=== PATIENT | male | born 1985 | race Caucasian/White ===

== ENCOUNTER 2023-05-26 13:27 | Emergency (ER) | payer BC, SELFPAY ==
[2023-05-26 13:51] VITALS: BP 140/72; PULSE 87; RESP 18; TEMP 36.2; O2SAT 97; BMI 30.3
--- NOTE | 2023-05-26 13:51 | ED_ITS ---
HPI - General Adult General Chief complaint: Dizziness Stated complaint: Dizzy Spells Falling Time Seen by Provider: 05/26/23 21:44 Source: patient Mode of arrival: ambulatory Limitations: no limitations History of Present Illness HPI narrative: 38 yo male no sig PMH no travel no procedures here with c/o intermittent dizzines but no CP/SOB no hx of VTE or SCD in family might have started when he had COVID back in April he feels weak and his legs want to give out at times. He has fallen to his knees before but no LOC. Usually starts with him standing. MD complaint: near syncope Onset (ago): month(s) Radiation: non-radiation Severity: moderate Quality: other (weakness) Relieving factors: rest Exacerbating factors: movement Associated symptoms: weakness Treatments prior to arrival: none Related Data Allergies Allergy/AdvReac Type Severity Reaction Status Date / Time No Known Allergies Allergy Verified 05/26/23 13:51 Review of Systems 2 Review of Systems: Constitutional : No Fever, No Chills, No Fatigue ENT/Mouth : No sore throat, No Rhinorrhea Eyes: No Eye Pain, No Swelling, No Redness Cardiovascular : No Chest Pain, No SOB, No Dyspnea on Exertion Respiratory : No Cough, No Sputum Gastrointestinal : No Nausea, No Vomiting, No Diarrhea, No abdominal Pain Genitourinary : No Dysuria, No Urinary Frequency, No Hematuria, Musculoskeletal : No joint pain, No Myalgias, No Joint Swelling Skin : No Skin Lesions, No rash Neuro : No Weakness, No Numbness, pos Dizziness, no Headache Psych : No Anxiety/Panic, No Depression Heme/Lymph: No Bruising, No Bleeding,No Lymphadenopathy Endocrine : No Polyuria, No Polydipsia All other systems reviewed and are negative [facility] Past Medical History Attestation statement: The following information was validated with the patient. Source: old records reviewed Medical History No pertinent past medical history Social History Social History (Updated 05/26/23 @ 22:29 by Kaycee Polanco DO) Patient Tobacco Use Status: Never used Tobacco Physical Exam ED Vital Signs: Vital Signs - 24 hr 05/26/23 13:51 05/26/23 20:22 05/26/23 21:37 Temperature 97.2 F 98 F 97.9 F Pulse Rate 87 70 70 Respiratory Rate 18 18 18 Blood Pressure 140/72 H 125/61 137/82 Pulse Oximetry 97 97 98 Oxygen Delivery Method Room Air Room Air Room Air 05/26/23 22:16 05/26/23 22:17 05/26/23 22:18 Temperature Pulse Rate 62 73 78 Respiratory Rate Blood Pressure 124/72 114/66 Pulse Oximetry Oxygen Delivery Method BMI result Body Mass Index 30.3 Appearance: Alert. Oriented X3. No acute distress. Eyes: Pupils equal, round and reactive to light. ENT: Pharynx normal. Neck: Normal inspection. Neck supple. CVS: Normal heart rate and rhythm. Pulses normal. Respiratory: No respiratory distress. Breath sounds normal. Abdomen: Soft and nontender. Skin: Skin warm and dry. Normal skin color. Normal skin turgor. Extremities: No lower extremity edema. No calf ttp Neuro: Oriented X 3. No motor deficit. No sensory deficit. Course Course Course Narrative: Patient complains of dizziness described as lightheaded spells, he feels like he might faint but has not fainted, no palpitations no chest pain no shortness of breath, no muscle weakness Labs and EKG ordered This is rapid medical exam done in triage pending full evaluation and dispo by ER provider Medical Decision Making Medical Decision Making [facility] Narrative: 38 yo male intermittent dizziness at times since April post COVID it sounds like no hx of ACS, PERC negative, no sudden cardiac in family - precipitated by standing mostly. At this time he is not toxic, asymptomatic, normal neuro exam will obtain labs, EKG, and ortho VS if no sig findings will refer to PCP for holter monitoring and ECHO Differential Diagnosis Differential Diagnoses: The differential diagnosis associated with the presentation includes anemia, dehydration, orthostatic VS Admission/Observation Consideration of admission/observation: Escalation of care including admission/observation considered orthostatic VS, normal neuro exam, PERC negative no CP/SOB, no sudden cardiac in family at this time stable for DC Lab Data [facility] Lab Attestation statement: I reviewed the patient's lab results. 05/26/23 14:21 05/26/23 14:21 Labs: Lab Results 05/26/23 Range/Units 14:21 WBC 4.4 L (4.8-10.8) X10*3/uL RBC 4.67 (4.60-5.80) X10*6/uL Hgb 13.6 L (14.0-18.0) g/dl Hct 40.0 L (42.0-52.0) % MCV 85.7 (80.0-98.0) fL MCH 29.1 (27.0-33.0) pg MCHC 34.0 (31.0-36.0) g/dl RDW 13.1 (11.0-16.0) % Plt Count 201 (160-400) X10*3/uL MPV 9.4 (9.4-12.4) fL Immature Gran % (Auto) 0.2 (0.0-0.4) % Neut % (Auto) 51.4 (45-73) % Lymph % (Auto) 33.3 (20-40) % Tyler % (Auto) 12.3 H (2-11) % Eos % (Auto) 2.3 (0-4) % Baso % (Auto) 0.5 (0-2) % Lymph # (Auto) 1.5 (1.2-4.9) X10*3/uL Tyler # (Auto) 0.5 (0.1-1.2) X10*3/uL Eos # (Auto) 0.1 (0.0-0.4) X10*3/uL Baso # (Auto) 0.0 (0.0-0.2) X10*3/uL Abs Immat Gran (auto) 0.01 (0.00-0.03) X10*3/uL Absolute Neuts (auto) 2.3 (2.0-8.3) x10*3/uL Absolute Nucleated RBC 0.000 (0.0-0.012) X10*3/uL Nucleated RBC % (auto) 0.0 (0.0-0.2) /100WBC Sodium 144 (135-145) mmol/L Potassium 3.6 (3.3-5.1) mmol/L Chloride 106 (96-108) mmol/L Carbon Dioxide 29 (22-29) mmol/L Anion Gap 13 (12-20) BUN 14 (9-16) mg/dL Creatinine 0.76 (0.5-1.4) mg/dL Estim Creat Clear Calc 171.8 Estimated GFR > 60 Random Glucose 97 (60-115) mg/dL Calcium 9.2 (8.4-10.2) mg/dL Total Bilirubin 0.3 (0.0-1.0) mg/dL Direct Bilirubin 0.1 (0.0-0.5) mg/dL AST 52 H (5-37) U/L ALT 91 H (0-40) U/L Alkaline Phosphatase 55 (39-117) U/L Troponin I High Sens < 2.7 (<3.5-35.0) ng/L Total Protein 7.5 (6.5-8.0) g/dL Albumin 4.7 (3.5-5.0) g/dL Independent Interpretation I performed an independent interpretation of an: EKG Interpretation: Rate: 70 Rhythm: NSR [place]: normal Normal P waves. Normal PABLITO. Normal QRS complex. ST T wave : normal no MICHAEL qTC: 438 prior studies: no acute ischemia The study has been interpreted contemporaneously by me. . Discharge Plan Discharge Clinical Impression: Dizziness Instructions: Dizziness (ED) Additional Instructions: labs and EKG normal your blood pressure is not dropping when you stand the next step is to follow up with PCP and possibly cardiology for outpatient ECHO of the heart and holter monitor for events drink 60 ounces of water a day wait 30 seconds to 1 minute before standing your liver enzymes were mildly elevated avoid alcohol and recheck with your doctor in the next week. Referrals: Mayank Mcdonough MD [Primary Care Provider] - (please follow up for episodes) Stand Alone Forms: Work/School Release
--- NOTE | 2023-05-26 13:54 | ECG_ITS ---
Test Reason : dizziness Blood Pressure : / mmHG Vent. Rate : 070 BPM Atrial Rate : 070 BPM P-R Int : 144 ms QRS Dur : 094 ms QT Int : 406 ms P-R-T Axes : 011 021 058 degrees QTc Int : 438 ms Normal sinus rhythm Increased R/S ratio in V1, consider early transition or posterior infarct Abnormal ECG No previous ECGs available Referred By: Poli Cutler Electronically Signed By:Edmund Cedillo
[2023-05-26 14:33] LABS: MANUAL DIFF FLAG NO
[2023-05-26 14:40] LABS: Basophils Percent Auto 0.5 % (0-2); Eosinophils Absolute Auto 0.1 X10*3/uL (0.0-0.4); Eosinophils Percent Auto 2.3 % (0-4); Hemoglobin 13.6 g/dl (14.0-18.0); Imm Gran Abs Auto 0.01 X10*3/uL (0.00-0.03); Imm Gran Pct Auto 0.2 % (0.0-0.4); Lymphocytes Absolute Auto 1.5 X10*3/uL (1.2-4.9); Lymphocytes Percent Auto 33.3 % (20-40); Mean Corpuscular Hemoglobin 29.1 pg (27.0-33.0); Mean Corpuscular Volume 85.7 fL (80.0-98.0); Mean Platelet Volume 9.4 fL (9.4-12.4); Monocytes Absolute Auto 0.5 X10*3/uL (0.1-1.2); Monocytes Percent Auto 12.3 % (2-11); Neutrophils Absolute Auto 2.3 x10*3/uL (2.0-8.3); Neutrophils Percent Auto 51.4 % (45-73); Platelet Count 201 X10*3/uL (160-400); Red Blood Count 4.67 X10*6/uL (4.60-5.80); Red Cell Distribution Width 13.1 % (11.0-16.0); White Blood Count 4.4 X10*3/uL (4.8-10.8)
[2023-05-26 14:48] LABS: Alanine Aminotransferase 91 U/L (0-40); Albumin Level 4.7 g/dL (3.5-5.0); Alkaline Phosphatase 55 U/L (39-117); Anion Gap 13 (12-20); Aspartate Amino Transferase 52 U/L (5-37); Bilirubin Direct 0.1 mg/dL (0.0-0.5); Bilirubin Total 0.3 mg/dL (0.0-1.0); Blood Urea Nitrogen 14 mg/dL (9-16); Calcium 9.2 mg/dL (8.4-10.2); Carbon Dioxide 29 mmol/L (22-29); Chloride 106 mmol/L (96-108); Creatinine Clr Calc Pharmacy 171.8; Estimated Glomerular Filt Rate > 60; Glucose Random 97 mg/dL (60-115); Potassium 3.6 mmol/L (3.3-5.1); Sodium 144 mmol/L (135-145); Total Protein 7.5 g/dL (6.5-8.0)
[2023-05-26 14:56] LABS: Troponin-I High Sensitivity < 2.7 ng/L (<3.5-35.0)
[2023-05-26 20:22] VITALS: BP 125/61; PULSE 70; RESP 18; TEMP 36.6; O2SAT 97
[2023-05-26 21:37] VITALS: BP 137/82; PULSE 70; RESP 18; TEMP 36.6; O2SAT 98
--- NOTE | 2023-05-26 21:37 | MHC.EDTECH ---
This pct just assumed care of patient ,vitals taken ,and Patient was hooked up to playground monitor ,Call kathleen within Patient reach .
[2023-05-26 22:16] VITALS: PULSE 62
[2023-05-26 22:17] VITALS: BP 124/72; PULSE 73
[2023-05-26 22:18] VITALS: BP 114/66; PULSE 78
== END 2023-05-26 22:36 | disposition home or self-care (01) ==
PROVIDERS: Physician Assistant Medical; Emergency Provider Emergency Medicine; PCP Internal Medicine
DX: R42 Dizziness and giddiness (principal); R79.89 Other specified abnormal findings of blood chemistry
CPT/HCPCS: 36415; 80048; 80076; 84484; 85025; 93005; 99283; 99285

== ENCOUNTER → 2023-05-26 13:54 | Outpatient (BNV) | payer BC, SELFPAY | PROVIDERS: Emergency Provider Emergency Medicine; PCP Internal Medicine; Visit Provider Internal Medicine Cardiovascular Disease | DX: R94.31 Abnormal electrocardiogram [ECG] [EKG] (principal) | CPT/HCPCS: 93010 ==

== ENCOUNTER 2024-01-01 13:16 | Emergency (ER) | payer MEDICAID, SELFPAY ==
--- NOTE | ~2024-01-01 | XR_ITS ---
EXAMINATION: XR HAND/WRIST, LEFT CLINICAL INFORMATION: And swelling after fall, fourth and fifth metacarpal COMPARISON: None available. TECHNIQUE: PA, lateral, oblique, and scaphoid views of the left hand and wrist. FINDINGS: The bones and soft tissues are normal. No definite fracture. There is some minimal cortical irregularity in the proximal metaphyses of the third and fourth digits on their radial aspect but no definite fracture line is seen (see saved gandara images). Alignment is anatomic. Joint spaces are maintained. No erosions or soft tissue calcifications. XR/XR hand wrist LT IMPRESSION: No definite fracture is seen. There is some minimal cortical irregularity in the proximal metaphyses of the third and fourth digits. Electronically signed by: Juan Trimble MD 01/01/2024 03:06 PM EDT
--- NOTE | 2024-01-01 13:31 | ED_ITS ---
HPI - General Adult General Chief complaint: Extremity Injury, Upper Stated complaint: L hand inj Time Seen by Provider: 01/01/24 15:16 Source: patient and RN notes reviewed Mode of arrival: ambulatory Limitations: no limitations History of Present Illness ED Provider: Vianey Merlos PA-C [facility] narrative: This is a 38-year-old male, with no known medical problems, who presents emergency department of left hand pain status post mechanical fall which occurred today. Patient states that he was running after his new puppy and accidentally tripped on the sidewalk fell onto left hand. He immediately had pain in his left hand. He is right-handed. He denies injury to this hand in the past. He reports icing it makes the pain worse. He endorses some tingling into his fingers. He is not on blood thinners. No head strike or LOC. No other complaints or concerns at this time. MD complaint: Left hand pain Onset (ago): day(s) Location: upper extremity Radiation: extremity Severity: moderate Quality: aching Pain Consistency: constant Relieving factors: immobilization Exacerbating factors: movement Associated symptoms: denies other symptoms Treatments prior to arrival: none Related Data Previous Rx's ?Medication ?Instructions ?Recorded acetaminophen 500 mg tablet 1,000 mg (2 x 500 mg) PO QID PRN 01/01/24 (Tylenol Extra Strength) pain #30 tabs ibuprofen 600 mg tablet 600 mg PO Q6H PRN pain #30 tabs 01/01/24 Allergies Allergy/AdvReac Type Severity Reaction Status Date / Time No Known Allergies Allergy Verified 01/01/24 13:34 Review of Systems Review of Systems: Yes all other systems are reviewed and are negative Constitutional: Constitutional: Reports as per [facility] Past Medical History Medical History No pertinent past medical history Social History Social History (Updated 05/26/23 @ 22:29 by Kaycee Polanco DO) Patient Tobacco Use Status: Never used Tobacco Advance Directives: No Advance Directives Information Provided: No Do you have a plan to hurt others: No Plan Physical Exam ED Vital Signs: Vital Signs - 24 hr 01/01/24 13:32 01/01/24 17:40 Temperature 97.4 F 97.4 F Pulse Rate 72 72 Respiratory Rate 16 16 Blood Pressure 107/60 107/60 Pulse Oximetry 96 96 Oxygen Delivery Method Room Air Room Air BMI result Body Mass Index 28.5 Const General: cooperative, comfortable and no acute distress Orientation/consciousness: patient oriented x3 Limitations: no limitations HENMT Head: Yes normal to inspection, Yes normocephalic and Yes atraumatic Ears: hearing grossly normal bilaterally General nose exam: Normal external nose present Face and sinus: Yes normal facial exam Mouth: Normal oral and palatal mucosa present, oropharynx normal and moist mucous membranes Throat: Yes posterior oropharynx normal Eyes General: appearance normal, both eyes and all related structures Eyelids: Yes eyelids normal Conjunctivae: conjunctivae normal Sclerae: sclerae normal Pupils: Equal, round and reactive pupils present EOM: EOMs intact bilaterally Neck Neck: Yes normal visual inspection, Yes full ROM and Yes no lymphadenopathy Lymphatic: no lymphadenopathy noted Chest Chest palpation & inspection: normal inspection of the chest Resp Effort & Inspection: normal respiratory effort and able to speak in complete sentences Auscultation: clear to auscultation bilaterally, no crackles, no rales, no rhonchi and no wheezes Cardio Rate: regular rate Rhythm: regular rhythm Heart sounds: S1 normal heart sound present and S2 normal heart sound present GI Inspection: Yes normal to inspection Skin General skin exam: no rashes or lesions noted Trauma: no lacerations or abrasions Wounds: no wounds Neuro General: patient oriented x3 and moves all extremities Cranial nerves: Yes Equal, round and reactive pupils present Extrem Other: Left hand dorsal aspect there is moderate edema and ecchymosis seen overlying the 3rd 4th and 5th metacarpals. He has exquisite tenderness overlying the proximal 3rd and 4th metacarpal. Strong radial pulse, distal sensation circulation intact. Unable to fully make fist secondary to pain. Palmar surface, there is superficial abrasions noted, no active bleeding, no surrounding erythema or evidence of foreign body. General: Yes normal to inspection Left upper extremity: normal to inspection Right lower extremity: normal to inspection Left lower extremity: normal to inspection Course Course Course Narrative: This is a rapid medical exam performed by Katlyn Erickson NP: Additional HPI, ROS, PE not included below will be deferred to primary provider. Patient is a 38-year-old right hand dominant male presenting to the ED with complaint of left hand pain and swelling. Puppy ran away and he fell onto sidewalk chasing her. Tenderness and swelling 4/5th MCP, superficial abrasions to palm. Plan: xray Medications Administered Discontinued Medications Generic Name Dose Route Start Last Admin Trade Name Freq PRN Reason Stop Dose Admin Diphtheria/Tetanus/Acell Pertussis 0.5 ml 01/01/24 16:05 01/01/24 16:49 Diphth,Pertus(Acell),Tet Adult 0.5 Ml Syringe IM 01/01/24 16:06 0.5 ml .ONCE ONE Administration Procedures Orthopedic Splinting/Casting Injury #1: Side: left Upper Extremity Injury Location: wrist and hand Upper Extremity Immobilizer: volar splint Medical Decision Making Medical Decision Making MDM Narrative: this is a 38-year-old male who presents emergency department with complaints of left hand pain status post mechanical fall which occurred just prior to arrival. On arrival, vital signs within normal limits. He had no head strike or LOC. He is not on blood thinners. Left hand dorsal aspect, there is moderate edema and ecchymosis seen with point tenderness overlying the 3rd and 4th metacarpal. X-rays were obtained to rule out any bony abnormalities. There is some minimal cortical irregularity in the proximal metaphyses of the third and fourth digits. Given patient is tender along these regions, I have place patient in a volar splint, given orthopedic referral. Advised to alternate between ibuprofen and Tylenol and elevate hand and wrist. Superficial abrasions were cleansed prior to splinting with saline. Updated tetanus in department. Given strict return precautions. He understands and agrees with plan. Patient stable for discharge. Differential Diagnosis Differential Diagnoses: The differential diagnosis associated with the presentation includes Fracture, contusion, sprain, strain, dislocation Admission/Observation Consideration of admission/observation: Escalation of care including admission/observation considered Radiology Impression Discussion of test interpretation with radiology: I have reviewed the radiologist's reading. Radiologist Impression: FINDINGS: The bones and soft tissues are normal. No definite fracture. There is some minimal cortical irregularity in the proximal metaphyses of the third and fourth digits on their radial aspect but no definite fracture line is seen (see saved gandara images). Alignment is anatomic. Joint spaces are maintained. No erosions or soft tissue calcifications. XR/XR hand wrist LT IMPRESSION: No definite fracture is seen. There is some minimal cortical irregularity in the proximal metaphyses of the third and fourth digits. Electronically signed by: Juan Trimble MD 01/01/2024 03:06 PM EDT RP Dictated By: Juan Trimble MD Discharge Plan Discharge Clinical Impression: Contusion of hand, Carpal fracture Patient Disposition: Home, Self-Care Instructions: Hand Fracture (ED), Contusion in Adults (ED) Additional Instructions: You were seen in the emergency department due to right hand pain. Your x-rays do not show any discrete fracture however there was question of some irregularity in your 3rd and 4th metacarpals (hand bones). You placed your hand in a splint, please rest, ice, alternate between ibuprofen and tylenol, and elevate your hand reduce swelling. Do not get splint wet. You need to follow-up team call Wednesday to make an appointment. If any new or worsening symptoms occur including but not limited to worsening swelling, pain, changes in color of your digits, please return for re- evaluation. We also updated your tetanus shot in the department, please update your records. Prescriptions: New ibuprofen 600 mg tablet 600 mg PO Q6H PRN (Reason: pain) Qty: 30 0RF acetaminophen [Tylenol Extra Strength] 500 mg tablet 1,000 mg PO QID PRN (Reason: pain) Qty: 30 0RF Referrals: [facility] [Provider Group] Stand Alone Forms: Work/School Release Interventions: ED Discharge Assessment Last Done: 01/01/24 17:40 Discharge Date/Time: 01/01/24 17:42 Print Language: Romanian
[2024-01-01 13:32] VITALS: BP 107/60; PULSE 72; RESP 16; TEMP 36.3; O2SAT 96; BMI 28.5
[2024-01-01] MEDS: Diphth,Pertus(ACell),Tet Adult 0.5 ML SYRINGE IM (16:49)
[2024-01-01 17:40] VITALS: BP 107/60; PULSE 72; RESP 16; TEMP 36.3; O2SAT 96
== END 2024-01-01 17:42 | disposition home or self-care (01) ==
PROVIDERS: Emergency Provider Internal Medicine; PCP Internal Medicine
DX: S60.222A Contusion of left hand, initial encounter (principal); W18.30XA Fall on same level, unspecified, initial encounter; Y93.9 Activity, unspecified; Y92.480 Sidewalk as the place of occurrence of the external cause; Y99.9 Unspecified external cause status; M79.642 Pain in left hand
CPT/HCPCS: 73110; 73130; 90471; 90715; 99284

== ENCOUNTER 2024-01-03 11:57 | Outpatient (REF) | payer MEDICAID, SELFPAY ==
--- NOTE | ~2024-01-03 | XR_ITS ---
EXAMINATION: XR HAND, LEFT CLINICAL INFORMATION: M79.642 - Pain in left hand COMPARISON: None available. TECHNIQUE: PA, lateral, ball-catcher's, and oblique views of the left hand. FINDINGS: No fracture, dislocation, or focal bony abnormality. Normal bony mineralization. Specifically, the proximal metacarpals are intact. Normal alignment of the hand and carpal bones. No findings of arthritis or periarticular osteopenia. Joint spaces normal. No erosions. No focal soft tissue abnormality. XR/XR hand LT min 3V IMPRESSION: 1. Normal left hand. No findings of arthropathy or fracture. Electronically signed by: Mushtaq Palencia MD 03/13/2024 09:06 AM WILLIAM
== END 2024-01-03 11:58 | disposition home or self-care (01) ==
LOC: HO.HOSX 11:57
PROVIDERS: PCP Internal Medicine
DX: M79.642 Pain in left hand (principal); S62.313A Displaced fracture of base of third metacarpal bone, left hand, initial encounter for closed fracture; S62.315A Displaced fracture of base of fourth metacarpal bone, left hand, initial encounter for closed fracture
CPT/HCPCS: 73130; 99202

== ENCOUNTER → 2024-01-03 12:39 | Outpatient (BNV) | payer MEDICAID, SELFPAY | PROVIDERS: PCP Internal Medicine; Visit Provider Radiology Diagnostic Radiology | DX: M79.642 Pain in left hand (principal) | CPT/HCPCS: 73130 ==

== ENCOUNTER 2024-01-03 13:00 | Outpatient (AMB) | payer SELFPAY ==
--- NOTE | 2024-01-03 13:34 | A.OFFVIS_ITS ---
Vital Signs 01/03/24 13:35 Height 6 ft 2 in Weight 220 lb BMI 28.2 Handedness Right Intake Visit Reasons: FC- Left carpal fracture Intake Note: Merrill is a 38 year old right hand dominant male who presents today as a new patient for an ED follow up of his left hand pain s/p fall DOI: 01/01/2024. Patient reports running after his puppy when he tripped and fell, landing on the left hand. Patient reports he has been having pain since, more now after his splint was removed in xrays for today's visit. He reports a mixture of different kinds of pain, sharp, aching, and burning depending on his ROM and if it is touched or not. He has intermittent tingling in the 4th and 5th digit of the left hand. He alternates Tylenol and ibuprofen which does provide him relief. Denies past treatment in his left hand. Denies numbness. Patient reports he is out of work due to injury and needs work note. Allergies No Known Allergies Allergy (Verified 01/03/24 13:39) HPI HPI FC- Left carpal fracture: Details: Patient is a 38-year-old male who presents for evaluation of fractures of the 3rd and 4th metacarpal bases, date of injury 01/01/2024. The patient reports that on that date, he was walking his dog, when he fell onto an outstretched left hand and immediately began to experience significant pain and edema. Patient was evaluated in the emergency department where x-rays revealed small, nondisplaced cortical irregularities of the bases of the 3rd and 4th metacarpals of the left hand. Today, the patient reports that his pain has improved slightly, but states that he continues to have significant discomfort in his left hand. The patient reports that this pain primarily occurs with range of motion, he would describe it as ?stabbing or ?burning? depending on what motion he was attempting. Patient reports that he has had occasional numbness and tingling of the 4th and 5th digits of the left hand, but states that he feels this is likely due to the significant swelling he is still experiencing. No other acute complaints or concerns at this time. 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 Neuro: Normal sensation of the tips of all digits of the left hand at this time Vascular: Cap refill brisk Pain: Patient reports significant tenderness to palpation about the 3rd, 4th metacarpal bases of the left hand No tenderness to palpation of the distal 3rd and 4th metacarpals, or the 1st, 2nd, 5th metacarpals No anatomical snuffbox tenderness No tenderness to palpation of the radial styloid, ulnar styloid ROM: Patient is able to get close to making a closed fist, but states that due to swelling, he is not able to get all the way to a closed fist Skin: No lacerations or abrasions. General: There is noted to be significant edema about the 3rd, 4th, 5th metacarpal bases of the left hand There is also some old, yellowed ecchymosis in this area No erythema or evidence of infection Psych: Appears grossly normal Affect normal Attitude cooperative Office Procedures Fracture Care Details: third and fourth MC base fractures Fracture Billing Code: Fracture Billing Code Results Reviewed Results Reviewed: X-rays obtained in the office today and independently reviewed by me, Edwar Kingsley PA-C, demonstrate cortical irregularities of the 3rd and 4th metacarpal bases consistent with nondisplaced fractures.. Assessment & Plan Assessment & Plan (1) Fracture of base of third metacarpal bone of left hand: Code(s): S62.313A - Displaced fracture of base of third metacarpal bone, left hand, initial encounter for closed fracture Category: Medical (2) Fracture of base of fourth metacarpal bone of left hand: Code(s): S62.315A - Displaced fracture of base of fourth metacarpal bone, left hand, initial encounter for closed fracture Category: Medical Plan 1. Fracture of 3rd metacarpal base 2. Fracture of 4th metacarpal base Date of injury 01/01/2024 Patient is educated about this injury Patient is educated about the typical recovery course Cases discussed with Dr. Rendon, who was not available to see the patient with me in clinic today, and a collaborative treatment plan was formed: At this time, patient is given a Velcro wrist splint to be worn most of the time, but can be removed while at home or resting for gentle range of motion Patient is also advised that he should latricia tape the 3rd and 4th digits to act as a moving splint Patient is also educated that while at home, he should elevate his left wrist and hand to control swelling Patient is also educated on conservative pain management measures, such as rest, ice, elevation, and [id number] pain medication as needed Patient is amenable to this plan Patient will follow-up in 3-4 weeks with repeat x-rays, sooner with any acute concerns Orders: Orders XR hand LT min 3V 01/03/24 M79.642 - Pain in left hand Medications: Discontinued acetaminophen (Tylenol Extra Strength) Discontinued Reason: Patient no longer taking 1,000 mg (2 x 500 mg) PO QID PRN 30 tabs 0RF pain ibuprofen Discontinued Reason: Patient no longer taking 600 mg PO Q6H PRN 30 tabs 0RF pain Coding Level of Care Code New Pt Level 3 (52410) Diagnoses Fracture of base of third metacarpal bone of left hand S62.313A Fracture of base of fourth metacarpal bone of left hand S62.315A CPT Codes Fracture Care - Fracture Billing Code: Fracture Billing Code ([id number])
[2024-01-03 13:35] VITALS: BMI 28.2
== END 2024-01-03 14:36 | disposition home or self-care (01) ==
PROVIDERS: PCP Internal Medicine
DX: S62.313A Displaced fracture of base of third metacarpal bone, left hand, initial encounter for closed fracture (principal); S62.315A Displaced fracture of base of fourth metacarpal bone, left hand, initial encounter for closed fracture
CPT/HCPCS: 99203

== ENCOUNTER 2024-01-25 11:49 | Outpatient (REF) | payer MEDICAID, SELFPAY ==
--- NOTE | ~2024-01-25 | XR_ITS ---
EXAMINATION: XR HAND, LEFT CLINICAL INFORMATION: M79.642 - Pain in left hand COMPARISON: None available. TECHNIQUE: PA, lateral, and oblique views of the left hand. FINDINGS: The bones and soft tissues are normal. No fracture. Alignment is anatomic. Joint spaces are maintained. No erosions or soft tissue calcifications. XR/XR hand LT min 3V IMPRESSION: Stable examination. Normal left hand. Electronically signed by: Mushtaq Palencia MD 03/13/2024 09:07 AM WILLIAM
== END 2024-01-25 11:50 | disposition home or self-care (01) ==
LOC: HO.HOSX 11:49
DX: M79.642 Pain in left hand (principal); S62.315A Displaced fracture of base of fourth metacarpal bone, left hand, initial encounter for closed fracture; S62.313A Displaced fracture of base of third metacarpal bone, left hand, initial encounter for closed fracture
CPT/HCPCS: 73130; 99212

== ENCOUNTER 2024-01-25 12:55 | Outpatient (AMB) | payer OTHER, SELFPAY ==
--- NOTE | 2024-01-25 12:58 | A.OFFVIS_ITS ---
Vital Signs 01/25/24 13:12 Height 6 ft 2 in Weight 220 lb BMI 28.2 Intake Visit Reasons: OV-Left carpal fracture w/xray, DOI 01/01/24 Intake Note: Merrill is a 38 year old right hand dominant male who presents today for a follow up visit for his 3rd and 4th metacarpal fracture of left s/p fall DOI: 01/01/2024. Patient reports the past couple of days he has had an increase of pain located at his 4th and 5th MCP on the dorsal side of hand that radiates into his wrist. He continues to wear velcro wrist brace as instructed. Allergies No Known Allergies Allergy (Verified 01/25/24 13:12) HPI HPI OV-Left carpal fracture w/xray, DOI 01/01/24: Details: Patient is a 38-year-old male who presents for follow-up evaluation status post left 3rd and 4th metacarpal base fractures, date of injury 01/01/2024. Today, the patient reports that he is feeling well, and then he is not experiencing any pain at baseline. The patient reports that the only time he experiences any pain is when he is out of the Velcro wrist splint and when he is doing ?more than I should?. Patient reports that he discontinued latricia taping a few days after his previous appointment, as he felt this caused him more pain than not latricia taping. Patient inquires if he will be able to return to work at this time. No other acute complaints or concerns. 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 Neuro: Normal sensation of the tips of all digits of the left hand at this time Vascular: Cap refill brisk Pain: Patient reports no tenderness to palpation about the 3rd, 4th metacarpal bases of the left hand No tenderness to palpation of the distal 3rd and 4th metacarpals, or the 1st, 2nd, 5th metacarpals No anatomical snuffbox tenderness No tenderness to palpation of the radial styloid, ulnar styloid ROM: Patient is able to make a closed fist and extend all digits of the left hand fully Skin: No lacerations or abrasions. General: No edema, erythema, ecchymosis noted No evidence of infection Psych: Appears grossly normal Affect normal Attitude cooperative Results Reviewed Results Reviewed: X-rays obtained in the office today and independently reviewed by me, Edwar Kingsley PA-C, demonstrate nondisplaced fractures of the 3rd and 4th metacarpal bases of the left hand with evidence of interval bony healing. Assessment & Plan Assessment & Plan (1) Fracture of base of fourth metacarpal bone of left hand: Code(s): S62.315A - Displaced fracture of base of fourth metacarpal bone, left hand, initial encounter for closed fracture Category: Medical (2) Fracture of base of third metacarpal bone of left hand: Code(s): S62.313A - Displaced fracture of base of third metacarpal bone, left hand, initial encounter for closed fracture Category: Medical Plan 1. Left 3rd and 4th metacarpal base fractures Date of injury 01/01/2024 Patient appears to be recovering well from his injury Patient is educated about the typical recovery course At this time, patient is cleared to return to work on a limited basis, but is advised to avoid any impact activities or heavy lifting for a further 4 weeks Patient is also advised he should continue to wear the Velcro wrist splint at work, it is encouraged to continue latricia taping Patient understands this in his amenable to this plan Patient will follow-up in 4 weeks for [id number] check, sooner with any acute concerns Orders: Orders XR hand LT min 3V Today M79.642 - Pain in left hand Coding Level of Care Code Global (14476) Diagnoses Fracture of base of fourth metacarpal bone of left hand S62.315A Fracture of base of third metacarpal bone of left hand S62.313A
[2024-01-25 13:12] VITALS: BMI 28.2
== END 2024-01-25 13:40 | disposition home or self-care (01) ==
PROVIDERS: PCP Internal Medicine
DX: S62.315A Displaced fracture of base of fourth metacarpal bone, left hand, initial encounter for closed fracture (principal); S62.313A Displaced fracture of base of third metacarpal bone, left hand, initial encounter for closed fracture
CPT/HCPCS: 99213

== ENCOUNTER → 2024-01-25 12:58 | Outpatient (BNV) | payer MEDICAID, SELFPAY | PROVIDERS: Visit Provider Radiology Diagnostic Radiology | DX: S62.315D Displaced fracture of base of fourth metacarpal bone, left hand, subsequent encounter for fracture with routine healing (principal); S62.313D Displaced fracture of base of third metacarpal bone, left hand, subsequent encounter for fracture with routine healing; W19.XXXD Unspecified fall, subsequent encounter | CPT/HCPCS: 73130 ==

== ENCOUNTER 2024-02-22 11:14 | Outpatient (REF) | payer OTHER, SELFPAY ==
--- NOTE | ~2024-02-22 | XR_ITS ---
EXAMINATION: XR HAND, LEFT CLINICAL INFORMATION: M79.642 - Pain in left hand COMPARISON: 01/25/2024. 01/03/2024. TECHNIQUE: PA, lateral, and oblique views of the left hand. FINDINGS: The bones and soft tissues are normal. No fracture. Alignment is anatomic. Joint spaces are maintained. No erosions or soft tissue calcifications. XR/XR hand LT min 3V IMPRESSION: Normal left hand. Electronically signed by: Mushtaq Palencia MD 03/13/2024 09:07 AM [facility]IAM
== END 2024-02-22 11:15 | disposition home or self-care (01) ==
LOC: HO.HOSX 11:14
DX: M79.642 Pain in left hand (principal); S62.315A Displaced fracture of base of fourth metacarpal bone, left hand, initial encounter for closed fracture; S62.313A Displaced fracture of base of third metacarpal bone, left hand, initial encounter for closed fracture
CPT/HCPCS: 73130; 99212

== ENCOUNTER 2024-02-22 13:14 | Outpatient (AMB) | payer OTHER, SELFPAY ==
[2024-02-22 13:24] VITALS: BMI 25.7
--- NOTE | 2024-02-22 13:24 | MHC.OFFVIS ---
Vital Signs 02/22/24 13:24 Height 6 ft 2 in Weight 200 lb BMI 25.7 Intake Visit Reasons: OV-Left carpal fracture follow up 4 WK-DOI 01/01/24 Intake Note: Merrill is a 38 year old right hand dominant male who presents today for a follow up visit for his 3rd and 4th metacarpal fracture of left s/p fall DOI: 01/01/2024.Patient reports that he is dong well, he has some pain at the base of the left small finger that has been present . He explains that the finger [place] , He explains that this finger has a dull ache all the time. Mild tingling. He is out of work at this time, but he would like to return to work. He needs to cecilia able to preform CPR to return Allergies No Known Allergies Allergy (Verified 01/25/24 13:12) HPI HPI OV-Left carpal fracture follow up 4 WK-DOI 01/01/24: Details: Patient is a 38-year-old male who presents for 4 week follow-up status post left 3rd 4th metacarpal fractures, DOI 01/01/24. Patient reports that he is feeling well, and experiences minimal pain or discomfort at baseline. Patient states he would like to return to work, and the last her for his return to work status is ability to perform CPR if needed. Patient denies any numbness or tingling in the left hand. No other acute complaints or concerns at this time. 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 Neuro: Normal sensation of the tips of all digits of the left hand at this time Vascular: Cap refill brisk Pain: Patient reports no tenderness to palpation about the 3rd, 4th metacarpal bases of the left hand No tenderness to palpation of the distal 3rd and 4th metacarpals, or the 1st, 2nd, 5th metacarpals No anatomical snuffbox tenderness No tenderness to palpation of the radial styloid, ulnar styloid ROM: Patient is able to make a closed fist and extend all digits of the left hand fully Skin: No lacerations or abrasions. General: No edema, erythema, ecchymosis noted No evidence of infection Psych: Appears grossly normal Affect normal Attitude cooperative Results Reviewed Results Reviewed: X-rays obtained in the office today and independently reviewed by me, Edwar Kingsley PA-C, demonstrate nondisplaced fractures of the 3rd and 4th metacarpal bases of the left hand with evidence of interval bony healing. Assessment & Plan Assessment & Plan (1) Fracture of base of fourth metacarpal bone of left hand: Code(s): S62.315A - Displaced fracture of base of fourth metacarpal bone, left hand, initial encounter for closed fracture Category: Medical (2) Fracture of base of third metacarpal bone of left hand: Code(s): S62.313A - Displaced fracture of base of third metacarpal bone, left hand, initial encounter for closed fracture Category: Medical Plan 1. Left 3rd and 4th metacarpal base fractures Date of injury 01/01/2024 Patient appears to be recovering well from his injury Patient is educated about the typical recovery course At this time, patient is cleared to return to work full duty, with no active restrictions at this time Patient was cleared to perform CPR However, the patient is educated on the importance of activity modification and if he experiences increasing pain, he should call us for repeat evaluation Patient understands this in his amenable to this plan Patient will follow-up in 4 weeks for [id number] check, sooner with any acute concerns Orders: Orders OT Evaluation and Treatment 02/22/24 S62.315A - Displaced fracture of base of fourth metacarpal bone, left hand, initial encounter for closed fracture, S62.313A - Displaced fracture of base of third metacarpal bone, left hand, initial encounter for closed fracture XR hand LT min 3V 02/22/24 M79.642 - Pain in left hand Coding Level of Care Code Global (66202) Diagnoses Fracture of base of fourth metacarpal bone of left hand S62.315A Fracture of base of third metacarpal bone of left hand S62.313A
== END 2024-02-22 13:47 | disposition home or self-care (01) ==
PROVIDERS: PCP Internal Medicine
DX: S62.315A Displaced fracture of base of fourth metacarpal bone, left hand, initial encounter for closed fracture (principal); S62.313A Displaced fracture of base of third metacarpal bone, left hand, initial encounter for closed fracture
CPT/HCPCS: 99213

== ENCOUNTER → 2024-02-22 13:17 | Outpatient (BNV) | payer OTHER, SELFPAY | PROVIDERS: Visit Provider Radiology Diagnostic Radiology | DX: S62.315D Displaced fracture of base of fourth metacarpal bone, left hand, subsequent encounter for fracture with routine healing (principal); S62.313D Displaced fracture of base of third metacarpal bone, left hand, subsequent encounter for fracture with routine healing; W19.XXXD Unspecified fall, subsequent encounter | CPT/HCPCS: 73130 ==